=== PATIENT | male | born 1970 | race Caucasian/White ===

== ENCOUNTER 2017-06-21 18:44 | Emergency (ER) | payer MEDICAID ==
[~2017-06-21 18:44] MED LIST: LORT7.5T3 PO; Z.0.NO CURRENT MEDS
[2017-06-21 18:47] VITALS: BP 147/90; PULSE 73; RESP 16; TEMP 98.5; O2SAT 97
[2017-06-21] MEDS ORDERED: ACETAMINOPHEN/HYDROcodone 325 MG/5 MG TAB PO ONE (19:30)
--- NOTE | 2017-06-21 19:32 | RADRPT ---
EXAM DATE/TIME: 06/21/2017 19:08 [place] COMPARISON: No previous studies available for comparison. INDICATIONS : Pain post punching a wall. MEDICAL HISTORY : Chronic obstructive pulmonary disease. Asthma. SURGICAL HISTORY : Hernia repair. ENCOUNTER: Initial ACUITY: 4 - 6 days PAIN SCORE: 8/10 LOCATION: Left Hand. FINDINGS: Three view examination of the left hand demonstrates fractures of the distal fourth and fifth metacar pals with angular deformity. Overlying soft tissue swelling. No dislocation. No other fractures are i dentified. CONCLUSION: 1. Fractures of the distal left fourth and fifth metacarpals with angular deformity and overlying sof t tissue swelling. Trey Banegas MD on June 21, 2017 at 19:29 Board Certified Radiologist. This report was verified electronically.
[2017-06-21] MEDS ORDERED: NORC5TAB PO (19:33)
--- NOTE | 2017-06-21 19:33 | PD ---
HPI Chief Complaint: Musculoskeletal Complaint Time Seen by Provider: 19:31 Travel History International Travel<30 days: No Contact w/Intl Traveler<30days: No Traveled to known affect area: No History of Present Illness HPI 46-year-old male presents emergency Department with complaint of left hand pain after punching a wall on Sunday. Denies paresthesias, loss of sensation to the affected extremity. Reports decreased range of motion of the fourth and fifth fingers at the MCP joints. Reports swelling of the hand that has not subsided. Denies fevers, vomiting. Has not taken any medications or tried any treatments to alleviate his symptoms. Rates pain 8/10. Describes the pain as a throbbing sensation. Pain is aggravated with movement and palpation. No known relieving factors. Does not have an established primary care provider. Has no other medical complaints. Allergies to aspirin and penicillin. No other modifying factors or associated signs and symptoms. PFSH Past Medical History Asthma: Yes Depression: Yes COPD: Yes Neurologic: Yes (HEAD INJURY 1990) Past Surgical History Abdominal Surgery: Yes (HERNIA REPAIR) Other Surgery: Yes (HERNIA REPAIR) Social History Alcohol Use: Yes (OCCASIONALLY) Tobacco Use: Yes (1 PPD) Substance Use: No Allergies-Medications (Allergen,Severity, Reaction): Coded Allergies: aspirin (Unverified Allergy, Severe, 06/21/17) penicillin G (Unverified Allergy, Mild, Rash, 06/21/17) Reported Meds & Prescriptions Reported Meds & Active Scripts Active Ridgeway (Hydrocodone-Acetaminophen) 5 Mg-325 Mg Tab 1 Tab PO Q4H PRN Lortab 7.5/500 (Acetaminophen/Hydrocodone Bitart) Tab 1 Tab PO Q4HPRN FOR PAIN Reported No Current Meds (Miscellaneous Medication) [facility] [place] Review of Systems Except as stated in HPI: all other systems reviewed are Neg Physical Exam Narrative GENERAL: Well-nourished, well-developed male patient, in no acute distress SKIN: Warm and dry. HEAD: Atraumatic. Normocephalic. EYES: Pupils equal and round. No scleral icterus. No injection or drainage. ENT: Mucosa pink and moist. Airway patent. NECK: Trachea midline. CARDIOVASCULAR: Regular rate. RESPIRATORY: No accessory muscle use. GASTROINTESTINAL: Flat. MUSCULOSKELETAL: Left hand is edematous and with tenderness on palpation over the third, fourth, fifth metacarpal region; without erythema, ecchymosis; decreased range of motion at the MCP joint of the left fourth and fifth fingers ; fingers are pink and warm and with sensory intact. Left upper extremity supple and non-tense with 2+ radial pulse and sensory intact. No obvious deformities. No clubbing. No cyanosis. No edema. NEUROLOGICAL: Awake and alert. Oriented 3. No obvious cranial nerve deficits. Motor grossly within normal limits. Normal speech. PSYCHIATRIC: Appropriate mood and affect; insight and judgment normal. Data Data Last Documented VS Vital Signs Date Time Temp Pulse Resp B/P (MAP) Pulse Ox O2 Delivery O2 Flow Rate FiO2 06/21/17 18:47 98.5 73 16 147/90 (109) 97 Room Air Orders Orders Hand, Complete ([id number]) (06/21/17 ) Acetamin-Hydrocod 325-5 Mg ([place] 5-325 (06/21/17 19:30) Splint Or Brace Apply/Monitor (06/21/17 19:36) Sling Cradle Arm (06/21/17 ) Mandatory Outpatient Referral (06/21/17 19:37) [facility] Medical Decision Making Medical Screen Exam Complete: Yes Emergency Medical Condition: Yes Medical Record Reviewed: Yes Differential Diagnosis Boxer's fracture, hand fracture, hand sprain Narrative Course 46-year-old male with left hand injury. Left hand x-ray ordered in triage. Ridgeway ordered. 193: Left hand x-ray concludes: Fractures of the distal left fourth and fifth metacarpals with angular deformity and overlying soft tissue swelling. Ulnar gutter splint ordered. Arm sling ordered for support. Ridgeway prescribed for home. Mandatory outpatient referral ordered for patient to follow up outpatient with Dr. Angelica Marley, hand surgeon. Dr. Marley's information provided to the patient. Instructed patient follow up with hand surgeon. Instructed patient to follow up with primary care provider. Patient verbalizes understanding and agreement with treatment plan. Patient is medically cleared and stable for discharge. Discussed reasons to return to the emergency department. Patient agrees with treatment plan. The patients vital signs are stable and the patient is stable for outpatient follow-up and treatment. Patient discharged home, stable and in no acute distress. Diagnosis Primary Impression: Left hand fracture Qualified Codes: S62.92XA - Unspecified fracture of left wrist and hand, initial encounter for closed fracture Ref[facility]: [facility] Primary Care Physician Patient Instructions: General Instructions, Hand Fracture (ED) Additional Instructions: Tylenol or ibuprofen as directed and as needed to reduce pain Rest, ice, compress, and elevate extremity to decrease pain and inflammation Farhat wrap for support Splint for support; do not remove the splint until you follow-up with the hand surgeon Avoid aggravating activity; increase activity as tolerated Follow-up with primary care provider Follow-up with hand surgeon; Dr. Angelica Marley's information has been provided a discharge instruction; call and make an appointment with her office Return to the emergency department immediately with worsening symptoms Med/Other Pt SpecificInfo: Prescription(s) given Scripts Hydrocodone-Acetaminophen (Ridgeway) 5 Mg-325 Mg Tab 1 TAB PO Q4H Y for PAIN, #20 TAB 0 Refills Prov: Keyanna Cleaning 06/21/17 Disposition: 01 DISCHARGE HOME Condition: Stable Keyanna Cleaning Jun 21, 2017 19:33
== END 2017-06-21 20:31 | disposition home or self-care (01) ==
LOC: NEPK 18:44
DX: S62.305A Unspecified fracture of fourth metacarpal bone, left hand, initial encounter for closed fracture (principal); S62.307A Unspecified fracture of fifth metacarpal bone, left hand, initial encounter for closed fracture; F17.200 Nicotine dependence, unspecified, uncomplicated; W22.01XA Walked into wall, initial encounter
CPT/HCPCS: 29125; 73130

== ENCOUNTER → 2017-07-07 | Day surgery (SDC) | payer BC ==
[~2017-07-07] MED LIST changes: +*HYDROmorphone PF 1 MG VIAL PERIprocedural Use ONLY ONE; +*morphine SULFATE 4 MG/ML PERIprocedure ONLY ONE; +BACITRACIN TOP OINT 15 GM TUBE ONE; +BUPIVACAINE HCL PF 0.5% 30 ML VIAL ONE; +CLINDAMYCIN PHOS 600 MG/4 ML VIAL ONE; +DEXAMETHASONE SOD PHOS 4 MG/ML VIAL IV ONE; +DO NOT ADM ANY ANTICOAGULANT DRUGS PRN; +FAMOTIDINE 20 MG/2 ML VIAL ONE; +GLYCOPYRROLATE 1 MG/5 ML SYRINGE IV PUSH ONE; +LIDOCAINE HCL 1% PF 5 ML SYRINGE OTHER ONE; +LIDOCAINE HCL 2% 50 ML VIAL ONE; +NEOMYCIN/POLYMYXIN 1 ML G.U. IRRIGANT ONE; +NORC5TAB PO; +ONDANSETRON HCL 4 MG/2 ML VIAL IV ONE; +PROPOFOL 200 MG/20 ML AMP IV ONE; +ePHEDrine/NS 25 MG/5 ML SYRINGE IV ONE
[2017-07-07 08:15] VITALS: PULSE 62
[2017-07-07 09:30] VITALS: PULSE 64
--- NOTE | 2017-07-07 12:06 | PD.OP ---
Operative Report Preoperative Diagnosis: (1) Fracture of neck of fifth metacarpal bone of left hand (2) Fracture of neck of fourth metacarpal bone of left hand Postoperative Diagnosis: (1) Fracture of neck of fourth metacarpal bone of left hand (2) Fracture of neck of fifth metacarpal bone of left hand Procedure: open reduction and internal fixation fourth and fifth metacarpal necks with k wires left hand Anesthesia: general Surgeon: Bandar Ashraf Water Resource Consultant(s): garrick Operation and Findings: displaced and angulated fourth and fifth metacarpal necks with callous formation left hand Bandar Ashraf MD Jul 07, 2017 12:06
[2017-07-07 13:30] VITALS: BP 138/81; PULSE 76; RESP 18; O2SAT 97
--- NOTE | 2017-07-07 19:46 | MP ---
cc: NAEEM SANCHEZ MD DATE OF SURGERY: 07/07/2017. PREOPERATIVE DIAGNOSIS: Displaced fracture of fourth and fifth metacarpal necks, left hand. POSTOPERATIVE DIAGNOSIS: Displaced fracture fourth and fifth metacarpal necks, left hand. OPERATIVE PROCEDURE PERFORMED: Open reduction internal fixation with K-wires fourth and fifth metacarpal necks, left hand. SURGEON: Naeem Sanchez M.D. ANESTHESIA: General ESTIMATED BLOOD LOSS: Minimal TOURNIQUET TIME: 110 minutes at 250 mmHg. COMPLICATIONS: No complications. IMPLANTS USED: 0.045 K-wires x3 and 0.035 K-wires x1. DISPOSITION: To the post-anesthesia care unit stable. INDICATIONS FOR THE PROCEDURE: The patient is a 46-year-old male who presented with complaints of injury to the left hand after punching a wall about four weeks ago. He was splinted in the emergency room. He was four weeks since injury. On examination, he had absence of metacarpophalangeal joint of the fourth and fifth metacarpals with tenderness over the fourth and fifth metacarpals necks. The patient was unable to flex the MP joint of the little and the ring fingers. X-rays showed fractured necks of the fourth and fifth metacarpal necks with displacement and dorsal apex angulation of almost 90 degrees. Because of the 90 degree angulation and inability to flex the MP joint, the patient was consented for open reduction internal fixation of the fourth and fifth metacarpal necks. The patient was explained the risks and benefits of the procedure. DESCRIPTION OF THE PROCEDURE IN DETAIL: The patient was brought to the operating room and under general anesthesia, the left upper extremity was thoroughly prepped and draped. Initially reduction was attempted closed using C-arm because fracture was four weeks old, I was not able to obtain a reduction on closed manipulation and so decision was made to proceed with open reduction. The incision site was marked over the dorsal aspect of the MP joint extending across the fourth and fifth metacarpal shaft regions each measuring about 3-4 cm. After limb exsanguination, the tourniquet was inflated to 250 mmHg. Attention was initially directed to the fifth metacarpal neck. Incision was made over the proposed incision site. Soft tissue dissection was carried out exposing the extensor tendons. Incision was made between the extensor digiti minimi and extensor digitorum communis tendons exposing the fracture surface. There was evidence of callus formation. The MP joint capsule was incised in a longitudinal fashion. Capsular flaps were elevated exposing the fracture surface. The callus was removed by sharp and blunt dissection. The fracture was exposed. There was evidence of angulation and displacement of the metacarpal head. Using a [place] elevator, the metacarpal head was elevated obtaining the alignment. This was confirmed using C-arm. Attention was then directed to the fourth metacarpal neck. Incision was made over proposed incision site. The incision was deepened to the soft tissue, fascia exposing the extensor tendons. Incision was made between the two bands of the extensor digitorum communis tendon exposing the fracture surface of the neck. The MP joint capsule was incised to expose the fracture. There was evidence of callus formation which was removed by blunt and sharp dissection. Using a [place] elevator, the fracture surface was exposed and the metacarpal head was elevated using [place] elevator obtaining the alignment of the metacarpal head. The fracture was right at the junction of the head and the neck. Two 0.045 K-wires were then placed from the metacarpal head region into the fracture site. With the head reduced, the K-wires were then drilled across the fracture into the proximal fragment. Multiple C-arm views were obtained including the lateral view to confirm the fracture reduction and alignment. Alignment was acceptable. The K-wires were then cut short. Attention was then directed to the fifth metacarpal neck. One 0.045 K-wire and one 0.035 K-wire were introduced through the metacarpal head into the fracture surface. With the fracture reduced, the K-wires were then drilled across the proximal fragment. Reduction was confirmed using C-arm. Multiple views were obtained including the lateral and confirming the correction of the angulation and displacement. Multiple C-arm views were obtained including PA, lateral, oblique and AP views to confirm the fracture reduction and K-wire placement. The K-wires were cut and protected with Farheen balls. The capsule was closed over the fracture surface with 4-0 Vicryl. The extensor tendons were then approximated using 4-0 Ethibond in an interrupted fashion. The skin was then approximated using fine nylon in a horizontal mattress interrupted fashion. Xeroform and bacitracin dressing applied. About 10 mL of local anesthesia containing a mixture of 2% lidocaine and 5% Marcaine was injected across the incision site. A bulky hand dressing was applied which was held in place by a short-arm splint. The tourniquet was deflated. Total tourniquet time was 110 minutes. The patient had good distal circulation at release of the tourniquet. The patient was recovered sent to the recovery room in stable condition. He will follow up in three to four days time for dressing change. Naeem Sanchez MD SE/VIDHI /11:56 AM /7:03 PM
== END | disposition home or self-care (01) ==
LOC: HSDC 08:02 → HSDI 08:09
PROVIDERS: ATTEND Surgery Surgery of the Hand
DX: S62.337A Displaced fracture of neck of fifth metacarpal bone, left hand, initial encounter for closed fracture (principal); S62.335A Displaced fracture of neck of fourth metacarpal bone, left hand, initial encounter for closed fracture
CPT/HCPCS: 01830; 26615; 76000; J1100; J1170; J2270; J2405; J3010